=== PATIENT | female | born 1950 | race Caucasian/White ===

== ENCOUNTER → 2023-07-01 11:49 | Outpatient (REF) | payer MEDICARE, BC, SELFPAY ==
[2023-07-01 12:52] LABS: Blood Urea Nitrogen 17 mg/dl (7-17); Calcium 9.8 mg/dl (8.4-10.2); Carbon Dioxide 30 mmol/L (22-30); Chloride 105 mmol/L (98-107); Glucose 94 mg/dl (70-99); Potassium 4.3 mmol/L (3.5-5.1); Sodium 139 mmol/L (135-145); eGFR > 60.00
== END ==
LOC: REG 11:49
PROVIDERS: ATTENDING PHYSICIAN Nurse Practitioner; FAMILY PHYSICIAN Nurse Practitioner Family
DX: I10 Essential (primary) hypertension (principal)
CPT/HCPCS: 36415; 80048

== ENCOUNTER → 2023-08-02 12:46 | Outpatient (REF) | payer MEDICARE, BC, SELFPAY ==
[2023-08-02 14:41] LABS: % Basophils 1.1 % (0-2); % Eosinophils 2.6 % (0-6); % Immature Granulocytes 0.2 % (0-0.5); % Lymphocytes 35.7 % (20.5-51.1); % Monocytes 7.4 % (1.7-9.3); Absolute Basophils 0.1 10^3/uL (0-0.2); Absolute Eosinophils 0.1 10^3/uL (0-0.7); Absolute Lymphocytes 1.9 10^3/uL (1.2-3.4); Absolute Monocytes 0.4 10^3/uL (0.1-0.6); Absolute Neutrophils 2.9 10^3/uL (1.4-6.5); Hematocrit 33.5 % (37.0-47.0); Hemoglobin 10.3 g/dL (12.0-16.0); Mean Corp Hgb Conc. 30.7 g/dL (33.0-37.0); Mean Corpuscular Volume 87.7 fL (81.0-99.0); Mean Platelet Volume 10.3 fL (7.4-10.4); Nucleated Red Blood Cells % 0 %; Platelet Count 193 10^3/uL (130-400); Red Blood Cell Count 3.82 10^6/uL (4.20-5.40); Red Cell Dist. Width 14.3 % (11.5-14.5); White Blood Cell Count 5.4 10^3/uL (4.8-10.8)
[2023-08-02 14:57] LABS: ALT (SGPT) 21 U/L (0-35); AST (SGOT) 32 U/L (14-36); Albumin 3.9 g/dl (3.5-5.0); Alkaline Phosphatase 102 U/L (38-126); Blood Urea Nitrogen 21 mg/dl (7-17); Calcium 9.5 mg/dl (8.4-10.2); Carbon Dioxide 25 mmol/L (22-30); Chloride 103 mmol/L (98-107); Glucose 85 mg/dl (70-99); Potassium 3.4 mmol/L (3.5-5.1); Sodium 137 mmol/L (135-145); Total Bilirubin 0.9 mg/dl (0.2-1.3); Total Protein 6.7 g/dl (6.3-8.2); eGFR > 60.00
[2023-08-02 15:26] LABS: TSH Reflex To Free T4 1.11 uIU/ml (0.47-4.68)
== END ==
LOC: RCS 12:46
PROVIDERS: ATTENDING PHYSICIAN Nurse Practitioner; FAMILY PHYSICIAN Nurse Practitioner Family
DX: R55 Syncope and collapse (principal); I47.10 Supraventricular tachycardia, unspecified; I10 Essential (primary) hypertension; I35.1 Nonrheumatic aortic (valve) insufficiency
CPT/HCPCS: 36415; 80053; 84443; 85025; 93225; 93226; 93306

== ENCOUNTER → 2023-08-21 12:37 | Outpatient (REF) | payer MEDICARE, BC, SELFPAY ==
[2023-08-21 13:57] LABS: % Basophils 0.9 % (0-2); % Immature Granulocytes 0.4 % (0-0.5); % Lymphocytes 29.1 % (20.5-51.1); % Monocytes 7.9 % (1.7-9.3); % Neutrophils 59.7 % (42.2-75.2); Absolute Basophils 0.1 10^3/uL (0-0.2); Absolute Eosinophils 0.1 10^3/uL (0-0.7); Absolute Lymphocytes 1.6 10^3/uL (1.2-3.4); Absolute Monocytes 0.4 10^3/uL (0.1-0.6); Absolute Neutrophils 3.3 10^3/uL (1.4-6.5); Hematocrit 32.3 % (37.0-47.0); Hemoglobin 10.6 g/dL (12.0-16.0); Mean Corp Hgb Conc. 32.8 g/dL (33.0-37.0); Mean Corpuscular Hgb 27.8 pg (27.0-31.0); Mean Corpuscular Volume 84.8 fL (81.0-99.0); Mean Platelet Volume 10.3 fL (7.4-10.4); Nucleated Red Blood Cells % 0 %; Platelet Count 187 10^3/uL (130-400); Red Blood Cell Count 3.81 10^6/uL (4.20-5.40); Red Cell Dist. Width 13.9 % (11.5-14.5); White Blood Cell Count 5.5 10^3/uL (4.8-10.8)
[2023-08-21 15:13] LABS: Blood Urea Nitrogen 23 mg/dl (7-17); Calcium 9.2 mg/dl (8.4-10.2); Carbon Dioxide 28 mmol/L (22-30); Chloride 104 mmol/L (98-107); Glucose 85 mg/dl (70-99); Iron 47 ug/dl (37-170); Potassium 4.1 mmol/L (3.5-5.1); Sodium 138 mmol/L (135-145); eGFR > 60.00
[2023-08-21 15:22] LABS: Percent Saturation 12 % (20-50); Total Iron Binding Capacity 377 ug/dl (265-497)
[2023-08-21 15:48] LABS: Ferritin 9.5 ng/ml (11.1-264.0)
== END ==
LOC: REG 12:37
PROVIDERS: ATTENDING PHYSICIAN Nurse Practitioner; FAMILY PHYSICIAN Nurse Practitioner Family
DX: D64.9 Anemia, unspecified (principal); I10 Essential (primary) hypertension
CPT/HCPCS: 36415; 80048; 82728; 83540; 83550; 85025

== ENCOUNTER → 2023-09-24 09:31 | Outpatient (REF) | payer MEDICARE, BC, SELFPAY ==
[2023-09-24 11:24] LABS: NT-proBNP 512 pg/ml
[2023-09-24 11:41] LABS: Blood Urea Nitrogen 29 mg/dl (7-17); Calcium 9.3 mg/dl (8.4-10.2); Carbon Dioxide 30 mmol/L (22-30); Chloride 106 mmol/L (98-107); Glucose 91 mg/dl (70-99); Potassium 3.5 mmol/L (3.5-5.1); Sodium 139 mmol/L (135-145); eGFR > 60.00
== END ==
LOC: REG 09:31
PROVIDERS: ATTENDING PHYSICIAN Nurse Practitioner; FAMILY PHYSICIAN Nurse Practitioner Family
DX: I50.32 Chronic diastolic (congestive) heart failure (principal); R06.09 Other forms of dyspnea
CPT/HCPCS: 36415; 80048; 83880

== ENCOUNTER → 2023-09-26 09:06 | Outpatient (REF) | payer MEDICARE, BC, SELFPAY | LOC: RSP 09:06 | PROVIDERS: ATTENDING PHYSICIAN Nurse Practitioner; FAMILY PHYSICIAN Nurse Practitioner Family | DX: I50.32 Chronic diastolic (congestive) heart failure (principal); R06.09 Other forms of dyspnea | CPT/HCPCS: 94727; 94729; 94010 ==

== ENCOUNTER → 2023-09-27 07:48 | Outpatient (REF) | payer MEDICARE, BC, SELFPAY | LOC: DHCBC/DCA 07:48 | PROVIDERS: ATTENDING PHYSICIAN Nurse Practitioner; FAMILY PHYSICIAN Nurse Practitioner Family | DX: I50.32 Chronic diastolic (congestive) heart failure (principal); R06.09 Other forms of dyspnea | CPT/HCPCS: 78452; 93017; A9500; J2785 ==

== ENCOUNTER → 2023-11-06 06:38 | Outpatient (REF) | payer MEDICARE, BC, SELFPAY ==
[2023-11-06 08:39] LABS: ALT (SGPT) 20 U/L (0-35); AST (SGOT) 28 U/L (14-36); Albumin 3.8 g/dl (3.5-5.0); Alkaline Phosphatase 96 U/L (38-126); Blood Urea Nitrogen 21 mg/dl (7-17); Calcium 9.6 mg/dl (8.4-10.2); Carbon Dioxide 29 mmol/L (22-30); Chloride 104 mmol/L (98-107); Glucose 91 mg/dl (70-99); Iron 51 ug/dl (37-170); Potassium 4.3 mmol/L (3.5-5.1); Sodium 143 mmol/L (135-145); Total Bilirubin 0.7 mg/dl (0.2-1.3); Total Protein 6.5 g/dl (6.3-8.2); eGFR > 60.00
[2023-11-06 08:48] LABS: Percent Saturation 14 % (20-50); Total Iron Binding Capacity 353 ug/dl (265-497)
[2023-11-06 10:34] LABS: Ferritin 11.7 ng/ml (11.1-264.0)
== END ==
LOC: RAD 06:38
PROVIDERS: ATTENDING PHYSICIAN Nurse Practitioner; FAMILY PHYSICIAN Nurse Practitioner Family; REFERRING PHYSICIAN Internal Medicine
DX: I50.32 Chronic diastolic (congestive) heart failure (principal); R06.09 Other forms of dyspnea; H53.9 Unspecified visual disturbance; R55 Syncope and collapse; Z00.00 Encounter for general adult medical examination without abnormal findings; E78.00 Pure hypercholesterolemia, unspecified; I10 Essential (primary) hypertension; E66.9 Obesity, unspecified; D50.9 Iron deficiency anemia, unspecified
CPT/HCPCS: 36415; 80053; 82728; 83540; 83550; 93880

== ENCOUNTER → 2023-12-04 11:32 | Outpatient (REF) | payer MEDICARE, BC, SELFPAY ==
[2023-12-04 12:43] LABS: % Basophils 1.4 % (0-2); % Eosinophils 3.6 % (0-6); % Immature Granulocytes 0.2 % (0-0.5); % Lymphocytes 29.6 % (20.5-51.1); % Neutrophils 57.2 % (42.2-75.2); Absolute Basophils 0.1 10^3/uL (0-0.2); Absolute Eosinophils 0.2 10^3/uL (0-0.7); Absolute Lymphocytes 1.5 10^3/uL (1.2-3.4); Absolute Monocytes 0.4 10^3/uL (0.1-0.6); Absolute Neutrophils 2.9 10^3/uL (1.4-6.5); Hematocrit 34.2 % (37.0-47.0); Mean Corp Hgb Conc. 32.2 g/dL (33.0-37.0); Mean Corpuscular Hgb 27.1 pg (27.0-31.0); Mean Corpuscular Volume 84.2 fL (81.0-99.0); Mean Platelet Volume 9.6 fL (7.4-10.4); Nucleated Red Blood Cells % 0 %; Platelet Count 188 10^3/uL (130-400); Red Blood Cell Count 4.06 10^6/uL (4.20-5.40); Red Cell Dist. Width 15.2 % (11.5-14.5)
[2023-12-04 13:30] LABS: ALT (SGPT) 30 U/L (0-35); AST (SGOT) 33 U/L (14-36); Albumin 3.7 g/dl (3.5-5.0); Alkaline Phosphatase 92 U/L (38-126); Blood Urea Nitrogen 17 mg/dl (7-17); Calcium 9.6 mg/dl (8.4-10.2); Carbon Dioxide 28 mmol/L (22-30); Chloride 106 mmol/L (98-107); Glucose 90 mg/dl (70-99); HDL Cholesterol 76 mg/dl; LDL Cholesterol, Calculated 79 mg/dl; Potassium 4.7 mmol/L (3.5-5.1); Sodium 141 mmol/L (135-145); Total Bilirubin 0.8 mg/dl (0.2-1.3); Total Cholesterol 170 mg/dl (50-199); Total Protein 6.4 g/dl (6.3-8.2); Triglyceride 78 mg/dl (10-149); Very Low Density Lipoprotein 15 mg/dl (0-30); eGFR > 60.00
== END ==
LOC: REG 11:32
PROVIDERS: ATTENDING PHYSICIAN Nurse Practitioner Family
DX: Z00.00 Encounter for general adult medical examination without abnormal findings (principal); E78.00 Pure hypercholesterolemia, unspecified; I10 Essential (primary) hypertension; E66.9 Obesity, unspecified; D50.9 Iron deficiency anemia, unspecified
CPT/HCPCS: 36415; 80053; 80061; 85025

== ENCOUNTER → 2023-12-12 08:01 | Outpatient (REF) | payer MEDICARE, BC, SELFPAY | LOC: RAD 08:01 | PROVIDERS: ATTENDING PHYSICIAN Surgery Vascular Surgery; FAMILY PHYSICIAN Nurse Practitioner Family; REFERRING PHYSICIAN Internal Medicine | DX: I50.32 Chronic diastolic (congestive) heart failure (principal); R06.09 Other forms of dyspnea; R55 Syncope and collapse | CPT/HCPCS: 71260; Q9967 ==

== ENCOUNTER 2024-04-02 06:17 | Day surgery (SDC) | payer MEDICARE, BC, SELFPAY | END 2024-04-02 13:07 | disposition home or self-care (01) | LOC: GI 06:17 | PROVIDERS: ATTENDING PHYSICIAN Specialist | DX: C18.4 Malignant neoplasm of transverse colon (principal); D12.0 Benign neoplasm of cecum; K57.30 Diverticulosis of large intestine without perforation or abscess without bleeding; K22.2 Esophageal obstruction; K44.9 Diaphragmatic hernia without obstruction or gangrene; R13.10 Dysphagia, unspecified; D50.9 Iron deficiency anemia, unspecified | CPT/HCPCS: 45380; 45381; 43249; 43239; 88305; 88342 ==

== ENCOUNTER → 2024-04-06 15:11 | Outpatient (REF) | payer MEDICARE, BC, SELFPAY ==
[2024-04-06 17:08] LABS: ALT (SGPT) 16 U/L (0-35); AST (SGOT) 23 U/L (14-36); Albumin 3.7 g/dl (3.5-5.0); Alkaline Phosphatase 100 U/L (38-126); Blood Urea Nitrogen 20 mg/dl (7-17); Calcium 9.7 mg/dl (8.4-10.2); Carbon Dioxide 28 mmol/L (22-30); Chloride 104 mmol/L (98-107); Glucose 114 mg/dl (70-99); Potassium 4.1 mmol/L (3.5-5.1); Sodium 138 mmol/L (135-145); Total Bilirubin 0.9 mg/dl (0.2-1.3); Total Protein 6.3 g/dl (6.3-8.2); eGFR > 60.00
[2024-04-06 17:44] LABS: % Basophils 1.3 % (0-2); % Eosinophils 3.6 % (0-6); % Immature Granulocytes 0.2 % (0-0.5); % Lymphocytes 31.2 % (20.5-51.1); % Neutrophils 56.7 % (42.2-75.2); Absolute Basophils 0.1 10^3/uL (0-0.2); Absolute Eosinophils 0.2 10^3/uL (0-0.7); Absolute Lymphocytes 1.7 10^3/uL (1.2-3.4); Absolute Monocytes 0.4 10^3/uL (0.1-0.6); Hemoglobin 11.5 g/dL (12.0-16.0); Mean Corp Hgb Conc. 31.9 g/dL (33.0-37.0); Mean Corpuscular Hgb 27.8 pg (27.0-31.0); Nucleated Red Blood Cells % 0 %; Platelet Count 173 10^3/uL (130-400); Red Blood Cell Count 4.14 10^6/uL (4.20-5.40); Red Cell Dist. Width 14.2 % (11.5-14.5); White Blood Cell Count 5.3 10^3/uL (4.8-10.8)
[2024-04-07 15:06] LABS: CEA 3.96 ng/ml
== END ==
LOC: REG 15:11
PROVIDERS: ATTENDING PHYSICIAN Specialist; FAMILY PHYSICIAN Nurse Practitioner Family
DX: K63.89 Other specified diseases of intestine (principal); C18.9 Malignant neoplasm of colon, unspecified
CPT/HCPCS: 36415; 80053; 82378; 85025

== ENCOUNTER → 2024-04-14 11:53 | Outpatient (REF) | payer MEDICARE, BC, SELFPAY | LOC: RAD 11:53 | PROVIDERS: ATTENDING PHYSICIAN Specialist; FAMILY PHYSICIAN Nurse Practitioner Family | DX: K63.89 Other specified diseases of intestine (principal) | CPT/HCPCS: 74177; Q9967 ==

== ENCOUNTER → 2024-04-24 14:39 | Outpatient (REF) | payer MEDICARE, BC, SELFPAY | LOC: HWRAD 14:39 | PROVIDERS: ATTENDING PHYSICIAN Nurse Practitioner Family | DX: E04.1 Nontoxic single thyroid nodule (principal) | CPT/HCPCS: 76536 ==

== ENCOUNTER 2024-04-30 06:18 | Inpatient (IN) | payer MEDICARE, BC, SELFPAY ==
[2024-04-21 11:10] LABS: Hemoglobin 11.7 g/dL (12.0-16.0); Mean Corp Hgb Conc. 31.6 g/dL (33.0-37.0); Mean Corpuscular Hgb 27.9 pg (27.0-31.0); Mean Corpuscular Volume 88.1 fL (81.0-99.0); Mean Platelet Volume 9.9 fL (7.4-10.4); Platelet Count 183 10^3/uL (130-400); Red Cell Dist. Width 13.9 % (11.5-14.5); White Blood Cell Count 5.6 10^3/uL (4.8-10.8)
[2024-04-21 11:11] LABS: PT 13.5 Sec (11.4-14.6)
[2024-04-21 11:12] LABS: APTT 28.2 Sec (23.4-35.0)
[2024-04-21 11:53] LABS: Glycohemoglobin (HgbA1c) 5.5 % (4.0-5.6)
[2024-04-21 11:56] LABS: ALT (SGPT) 23 U/L (0-35); AST (SGOT) 27 U/L (14-36); Albumin 3.8 g/dl (3.5-5.0); Alkaline Phosphatase 105 U/L (38-126); Blood Urea Nitrogen 17 mg/dl (7-17); Calcium 9.5 mg/dl (8.4-10.2); Carbon Dioxide 27 mmol/L (22-30); Chloride 104 mmol/L (98-107); Glucose 89 mg/dl (70-99); Sodium 138 mmol/L (135-145); Total Bilirubin 1.1 mg/dl (0.2-1.3); Total Protein 6.3 g/dl (6.3-8.2); eGFR > 60.00
[2024-04-21 14:20] VITALS: BMI 25.3
[2024-04-30] VITALS (15 sets, daily range): BP systolic 118–160; BP diastolic 48–70; BMI 25.8
[2024-04-30] MEDS: TYLENOL 1000 MG PO (06:44)
[2024-04-30] MEDS: NEURONTIN 600 MG PO (06:44)
[2024-04-30] MEDS: HEPARIN 5000 UNITS SC (06:44)
[2024-04-30] MEDS: ENTEREG 12 MG PO (06:44)
[2024-04-30] MEDS: NORMOSOL-R/PLASMALYTE-A 1000 IV ×2 (06:51→14:40)
--- NOTE | 2024-04-30 07:35 | PTCARENOTE ---
Dr. Calixto was made aware that the patient had called Dr. Morales who was electronic scanner operator as per patient she was passing red in the toilet when completing her prep.
--- NOTE | 2024-04-30 11:17 | W.OR.COLCA ---
Addendum entered and electronically signed by Jamey Calixto MD 04/30/24 11:38:
Patient's Caio updated via edenes message.
Original Note:
Colon Cancer Post Op Note
Immediate Post Op
Primary Surgeon: Binta Calixto MD
Assisting Surgeon: ISABELA Ojeda
Pre-op Diagnosis: transverse colon cancer
Post-op Diagnosis: same
Procedure Performed: robotic right colectomy
Anesthesia Type: general plus local
Specimen / Cultures: right colon (including proximal transverse colon)
Estimated Blood Loss: 25 cc
Complications: no immediate
Operative Findings: 1) no obvious hepatic or peritoneal metastases 2) mid transverse colon tattoo with large tumor proximally
Colon Resection
Colon Resection
Operation performed with curative intent: Yes
Tumor Location: Transverse Colon
Right Hemicolectomy: Ileocolic and Right Colic (perhaps alos including R branch of middle colic)
[2024-04-30] MEDS: TORADOL 10 MG IV ×3 (12:38→23:27)
[2024-04-30 13:22] LABS: % Basophils 0.3 % (0-2); % Eosinophils 0.2 % (0-6); % Immature Granulocytes 0.2 % (0-0.5); % Lymphocytes 10.9 % (20.5-51.1); % Monocytes 1.2 % (1.7-9.3); % Neutrophils 87.2 % (42.2-75.2); Absolute Lymphocytes 0.6 10^3/uL (1.2-3.4); Absolute Monocytes 0.1 10^3/uL (0.1-0.6); Absolute Neutrophils 5.1 10^3/uL (1.4-6.5); Hematocrit 34.1 % (37.0-47.0); Hemoglobin 10.9 g/dL (12.0-16.0); Mean Corpuscular Hgb 27.5 pg (27.0-31.0); Mean Corpuscular Volume 85.9 fL (81.0-99.0); Mean Platelet Volume 9.6 fL (7.4-10.4); Nucleated Red Blood Cells % 0 %; Platelet Count 141 10^3/uL (130-400); Red Blood Cell Count 3.97 10^6/uL (4.20-5.40); Red Cell Dist. Width 14.2 % (11.5-14.5); White Blood Cell Count 5.9 10^3/uL (4.8-10.8)
[2024-04-30 13:26] LABS: Blood Urea Nitrogen 17 mg/dl (7-17); Calcium 8.6 mg/dl (8.4-10.2); Carbon Dioxide 18 mmol/L (22-30); Chloride 108 mmol/L (98-107); Estimated Creatinine Clearance 86 ml/min; Glucose 118 mg/dl (70-99); Magnesium 2.5 mg/dl (1.6-2.3); Potassium 4.4 mmol/L (3.5-5.1); Sodium 137 mmol/L (135-145); eGFR > 60.00
[2024-04-30] MEDS: TYLENOL 650 MG PO ×4 (13:53→23:28)
--- NOTE | 2024-04-30 15:53 | CM ---
Reviewed the chart notes and spoke with the patient and her spouse at the bedside. The patient resides with her spouse in a two story home with two steps to enter. The patient has in home cane, rolling walker, and shower chair. The patient
reports no VN/SNF in the past. The patient confirmed her pharmacy of choice is the [facility]. CM continues to be available to patient/family and is monitoring medical plan for needs at discharge.
Plan: Discharge plans will depend on the patient's progress.
[2024-04-30] MEDS: VIMPAT 150 MG PO (19:36)
[2024-04-30] MEDS: COREG 6.25 MG PO (19:36)
[2024-05-01] MEDS: NORMOSOL-R/PLASMALYTE-A 1000 IV ×2 (02:46→15:57)
[2024-05-01 03:47] VITALS: BP 141/61
[2024-05-01] MEDS: TYLENOL PO (04:55)
[2024-05-01] MEDS: TORADOL 10 MG IV ×3 (05:33→17:56)
[2024-05-01 06:00] VITALS: BMI 26.4
[2024-05-01 08:00] VITALS: BP 147/68
[2024-05-01 08:18] LABS: % Basophils 0.2 % (0-2); % Immature Granulocytes 0.3 % (0-0.5); % Lymphocytes 14.2 % (20.5-51.1); % Monocytes 7.2 % (1.7-9.3); % Neutrophils 78.1 % (42.2-75.2); Absolute Lymphocytes 0.9 10^3/uL (1.2-3.4); Absolute Monocytes 0.5 10^3/uL (0.1-0.6); Absolute Neutrophils 5.1 10^3/uL (1.4-6.5); Hematocrit 32.3 % (37.0-47.0); Hemoglobin 10.3 g/dL (12.0-16.0); Mean Corp Hgb Conc. 31.9 g/dL (33.0-37.0); Mean Corpuscular Hgb 27.3 pg (27.0-31.0); Mean Corpuscular Volume 85.7 fL (81.0-99.0); Mean Platelet Volume 10.4 fL (7.4-10.4); Nucleated Red Blood Cells % 0 %; Platelet Count 139 10^3/uL (130-400); Red Blood Cell Count 3.77 10^6/uL (4.20-5.40); Red Cell Dist. Width 14.4 % (11.5-14.5); White Blood Cell Count 6.6 10^3/uL (4.8-10.8)
[2024-05-01 08:22] LABS: Blood Urea Nitrogen 18 mg/dl (7-17); Calcium 8.6 mg/dl (8.4-10.2); Carbon Dioxide 22 mmol/L (22-30); Chloride 108 mmol/L (98-107); Estimated Creatinine Clearance 86 ml/min; Glucose 123 mg/dl (70-99); Magnesium 2.4 mg/dl (1.6-2.3); Potassium 4.4 mmol/L (3.5-5.1); Sodium 136 mmol/L (135-145); eGFR > 60.00
[2024-05-01] MEDS: TYLENOL 650 MG PO ×4 (08:30→21:29)
[2024-05-01] MEDS: VIMPAT 150 MG PO ×2 (08:30→21:29)
[2024-05-01] MEDS: PROTONIX 40 MG PO (08:30)
[2024-05-01] MEDS: ENTEREG 12 MG PO ×2 (08:31→21:29)
[2024-05-01] MEDS: COREG 6.25 MG PO ×2 (08:31→21:29)
[2024-05-01] MEDS: NORVASC 2.5 MG PO (08:31)
--- NOTE | 2024-05-01 09:57 | W.PN.CRS1 ---
Today's Communication / Plan
-
fulls
dc ivfs
d/c barba
lovenox
Assessment/Plan
-
POD#1 robotic right colectomy
WBC 6.6, hemoglobin 10.3
Vitals normal
-Advance diet to full's. DC IV fluids.
-Out of bed as tolerated
-OR pathology pending
-Discontinue barba
-Lovenox for DVT prophylaxis. TEDS/SCDS in place.
-Okay to shower.
-Pain control: Tylenol/Toradol standing, Dilaudid PRN
Subjective Data
Procedure
04/30/2024- robotic right colectomy
Subjective Data
Date of Service: May 01, 2024
Patient states she feels well today. She states that she has some left lower quadrant pain but it is mild. She denies nausea or vomiting. She has not had bowel function yet.
Objective Data
-
Vital Signs
Temp Pulse Resp BP Pulse Ox
98.7 F 66 18 147/68 99
05/01/24 08:00 05/01/24 08:00 05/01/24 08:00 05/01/24 08:00 05/01/24 08:00
Intake & Output
04/30/24 05/01/24 05/02/24
06:59 06:59 06:59
Intake Total 1130 / 1130
Output Total 1300 / 1300
Balance -170 / -170
Intake:
Oral fluids 480 / 480
IV fluids (Total) 650 / 650
Normosol 650 / 650
Output:
Urine, Barba 1300 / 1300
Lab Results
05/01/24 06:32
05/01/24 06:32
Physical Exam
-
General: No Acute Distress and AOx3
Abdomen: Soft, Non Distended and Tender (Mild left lower quadrant)
Skin: Warm and Dry
--- NOTE | 2024-05-01 11:35 | CM ---
Reviewed the chart notes. Patient's diet advanced to full liquid. CM continues to be available to patient/family and is monitoring medical plan for needs at discharge.
Plan: Discharge to home when medically stable. No additional needs identified at this time.
[2024-05-01 16:00] VITALS: BP 170/75
[2024-05-01] MEDS: LOVENOX 40 MG SC (17:56)
[2024-05-01 23:40] VITALS: BP 156/59
[2024-05-02] MEDS: TYLENOL 650 MG PO ×3 (00:48→11:32)
[2024-05-02] MEDS: TORADOL 10 MG IV ×3 (00:49→11:32)
[2024-05-02] MEDS: TYLENOL PO (04:25)
[2024-05-02 06:00] VITALS: BP 147/61; BMI 26.9
[2024-05-02] MEDS: FLUSH (NSS) 2 FLUSH IV (06:30)
[2024-05-02 07:35] VITALS: BP 154/57
[2024-05-02] MEDS: NORVASC 2.5 MG PO (08:45)
[2024-05-02] MEDS: VIMPAT 150 MG PO (08:45)
[2024-05-02] MEDS: ENTEREG 12 MG PO (08:45)
[2024-05-02] MEDS: PROTONIX 40 MG PO (08:46)
[2024-05-02] MEDS: COREG 6.25 MG PO (08:46)
--- NOTE | 2024-05-02 11:33 | W.PN.CRS1 ---
Addendum entered and electronically signed by Brandon Bridges MD 05/02/24 13:42:
I saw and examined the patient.
The [employer]'s note was reviewed and I agree with the note.
Comment: Ambulating, voiding, flores PO, passing flatus and stool, pain controlled. Exam approp, incisions cdi. Meets criteria for DC.
Original Note:
Today's Communication / Plan
-
d/c to home
Assessment/Plan
-
73 yo female POD #2 robotic right colectomy for transverse colon ca
AFVSS
Voiding well with good bowel recovery
Minimal discomfort
--Low residue diet
--OOB/Ambulate
--OR Path pending
--Has been on lovenox 40mg sq for VTE ppx, will transition to po eliquis 2.5mg upon d/c for vte ppx
--Dispo planning
Subjective Data
Procedure
04/30/2024- robotic right colectomy
Subjective Data
Date of Service: May 02, 2024
Patient seen and examined at bedside with Dr. Bridges. Denies n/v. Ambulating in room. Tolerating dietary advancements. Passing some loose stools and flatus. Minimal discomfort. Eager to go home.
Objective Data
-
Vital Signs
Temp Pulse Resp BP Pulse Ox
97.6 F 57 18 154/47 94
05/02/24 07:35 05/02/24 08:45 05/02/24 07:35 05/02/24 08:45 05/02/24 10:50
Intake & Output
05/01/24 05/02/24 05/03/24
06:59 06:59 06:59
Intake Total 1130 / 1130 2860 / 2860
Output Total 1300 / 1300 375 / 375
Balance -170 / -170 2485 / 2485
Intake:
Oral fluids 480 / 480 2059 / 2059
IV fluids (Total) 650 / 650 800 / 800
Normosol 650 / 650
Output:
Urine, Silva 1300 / 1300 375 / 375
Other:
Number of approximated SMALL 1
amounts of urine
Number of approximated MODERATE 1
amounts of urine
Number of approximated LARGE 3
amounts of urine
Lab Results
05/01/24 06:32
05/01/24 06:32
Physical Exam
-
General: No Acute Distress
HEENT: Grossly Normal
Abdomen: Soft, Non Distended and Non Tender
Skin: Warm and Dry
Incision: No Skin Erythema and Other (well approximated, dermabond intact)
--- NOTE | 2024-05-02 11:39 | W.DS.TRANS ---
Addendum entered and electronically signed by SADE Weathers 05/03/24 15:45:
dictated #[id number]
Original Note:
DC Summary - Healthcare Analyst
-
Discharge Instructions:
Discharge Diagnosis/Procedures robotic right colectomy
Diet Low Residue
Activity No strenuous activity
Additional Activity No lifting over 10lbs (gallon of milk)
Bathing Restrictions OK to Shower
Wound Care Allow glue to naturally fall off. Do not pick at
incisions. Do not soak in a tub or pool for 2
weeks.
Instructions: Low-fiber diet
Stand-Alone Forms:
Changes to Home Medications: No
Discharge Medications:
DC Medications w/original date entered in [employer]
amlodipine 2.5 mg tablet 2.5 mg PO DAILY Blood Pressure 04/23/24
calcium carbonate (Calcium 600) 600 mg PO DAILY Supplement 04/23/24
carvedilol 6.25 mg tablet (Coreg) 6.25 mg PO BID Blood Pressure 04/23/24
cholecalciferol (vitamin D3) 125 mcg (5,000 unit) tablet (Vitamin D3) 125 mcg PO DAILY Supplement 04/23/24
lacosamide 150 mg tablet 150 mg PO BID Seizures 04/23/24
apixaban 2.5 mg tablet (Eliquis) 2.5 mg PO BID 4 weeks #56 tabs 05/01/24
oxycodone 5 mg tablet 5 mg PO Q4HPRN PRN breakthrough/severe pain #10 tabs 05/02/24
Home Medication Changes
Pending Results: No
[2024-05-02 11:50] VITALS: BP 110/55
--- NOTE | 2024-05-02 13:11 | CM ---
Pt for d/c today
Has ride home
Given IMM
Plan - home no needs
== END 2024-05-02 14:13 | disposition home or self-care (01) | DRG 330 ==
LOC: 2 NORTH 06:18
PROVIDERS: ADMITTING PHYSICIAN Surgery; FAMILY PHYSICIAN Nurse Practitioner Family
PROC: 0DTF4ZZ Resection of Right Large Intestine, Percutaneous Endoscopic Approach (ICD-10-PCS; 2024-04-30)
PROC: 8E0W4CZ Robotic Assisted Procedure of Trunk Region, Percutaneous Endoscopic Approach (ICD-10-PCS; 2024-04-30)
DX: C18.4 Malignant neoplasm of transverse colon (principal); G40.209 Localization-related (focal) (partial) symptomatic epilepsy and epileptic syndromes with complex partial seizures, not intractable, without status epilepticus; I47.19 Other supraventricular tachycardia; I10 Essential (primary) hypertension; E78.00 Pure hypercholesterolemia, unspecified; F41.9 Anxiety disorder, unspecified; I87.2 Venous insufficiency (chronic) (peripheral); I35.1 Nonrheumatic aortic (valve) insufficiency; G47.33 Obstructive sleep apnea (adult) (pediatric); D50.9 Iron deficiency anemia, unspecified; E04.1 Nontoxic single thyroid nodule; I49.3 Ventricular premature depolarization; Z85.72 Personal history of non-Hodgkin lymphomas; Z92.3 Personal history of irradiation; Z92.21 Personal history of antineoplastic chemotherapy; Z87.891 Personal history of nicotine dependence; Z79.899 Other long term (current) drug therapy; Z86.000 Personal history of in-situ neoplasm of breast; Z85.820 Personal history of malignant melanoma of skin; Z91.041 Radiographic dye allergy status
CPT/HCPCS: 88309; 36415; 80048; 80053; 83036; 83735; 85025; 85027; 85610; 85730; 86850; 86900; 86901; 93005; J1335

== ENCOUNTER → 2024-06-02 09:11 | Outpatient (REF) | payer MEDICARE, BC, SELFPAY | LOC: WDC 09:11 | PROVIDERS: ATTENDING PHYSICIAN Nurse Practitioner Family | DX: N63.11 Unspecified lump in the right breast, upper outer quadrant (principal) | CPT/HCPCS: 76642; 77062; 77066 ==

== ENCOUNTER → 2024-08-20 13:11 | Outpatient (REF) | payer MEDICARE, BC, SELFPAY ==
[2024-08-20 14:47] LABS: CEA 5.20 ng/ml
== END ==
LOC: REG 13:11
PROVIDERS: ATTENDING PHYSICIAN Surgery; FAMILY PHYSICIAN Nurse Practitioner Family
DX: M25.561 Pain in right knee (principal); Z85.038 Personal history of other malignant neoplasm of large intestine
CPT/HCPCS: 36415; 73564; 82378

== ENCOUNTER → 2024-12-22 10:32 | Outpatient (REF) | payer MEDICARE, BC, SELFPAY ==
[2024-12-22 12:39] LABS: CEA 5.62 ng/ml
== END ==
LOC: REG 10:32
PROVIDERS: ATTENDING PHYSICIAN Surgery; FAMILY PHYSICIAN Nurse Practitioner Family
DX: C18.9 Malignant neoplasm of colon, unspecified (principal)
CPT/HCPCS: 36415; 82378

== ENCOUNTER → 2025-01-21 13:03 | Outpatient (REF) | payer MEDICARE, BC, SELFPAY ==
[2025-01-21 14:35] LABS: Blood Urea Nitrogen 17 mg/dl (7-17)
== END ==
LOC: REG 13:03
PROVIDERS: ATTENDING PHYSICIAN Specialist; FAMILY PHYSICIAN Nurse Practitioner Family
DX: R94.8 Abnormal results of function studies of other organs and systems (principal)
CPT/HCPCS: 36415; 82565; 84520

== ENCOUNTER → 2025-02-03 11:04 | Outpatient (REF) | payer MEDICARE, BC, SELFPAY | LOC: RAD 11:04 | PROVIDERS: ATTENDING PHYSICIAN Specialist; FAMILY PHYSICIAN Nurse Practitioner Family | DX: R94.8 Abnormal results of function studies of other organs and systems (principal) | CPT/HCPCS: 74177; Q9967 ==